=== PATIENT | female | born 1950 | race Caucasian/White ===

== ENCOUNTER 2017-07-28 23:12 | Observation (INO) ==
[2017-07-28] MEDS ORDERED: SALINE FLUSH 10ml SYRINGE IVF PRN (23:24)
[2017-07-28] MEDS ORDERED: MORPHINE SULFATE 4mg INJECTION IVP ONE (23:25)
[2017-07-28] MEDS ORDERED: KETOROLAC 30 MG/ML INJECTION IVP ONE (23:25)
[2017-07-28] MEDS ORDERED: ONDANSETRON 4 MG/2 ML INJECTION IVP ONE (23:25)
[2017-07-28] MEDS ORDERED: NS 1,000 ML IV ONE (23:26)
--- NOTE | 2017-07-28 23:31 | Emergency Department Report ---
Headache HPI - General Stated Complaint: severe salazar Time Seen by Provider: 07/28/17 23:14 Source: patient Mode of arrival: ambulatory Limitations: no limitations - History of Present Illness HPI Narrative: Patient has been having a severe global headache for the past 2 months. Patient was seen at the beginning of June here by Dr. Calabrese, diagnosed with probable recurrence of her chronic sinusitis, and started on Levaquin. Patient was then seen by Manuela Fields twice this month in the clinic, and thought to have continued sinusitis. Patient has been on 2 separate courses of antibiotics, and 4 days ago received an intramuscular injection of a steroid, none of which made her pain go away. Patient is scheduled for a CT of the head tomorrow, but the pain has become so severe tonight, without any relief from home Tylenol, the patient came to the ER. Patient has been offered and has not taken any other pain medications besides Tylenol over the course of last 2 months. Review of the patient's prescription record on [facility] acknowledges that she has not had any prescription pain medications. Patient has a long history of multiple recurrent sinusitis is in the past, has been seen by ENT in the past, it did not feel that those visits were worthwhile. When seeing Ms. Fields she stated that she would prefer not to see an ENT again in the future since she has had very little success in the past. Patient presents tonight specifically because her headache has become more severe, much more sharp in nature diffusely across the head, and she has had significant lightheadedness with presyncope at home secondary to the severity of pain. This seems to indicate a significant change from the patient's symptoms of the past 2 months. - Related Data Home Medications Medication Instructions Recorded Confirmed Bacillus/Protease/Amylas/Lipas 1 each PO DAILY 06/13/17 07/28/17 [Digest Adv Intensive Bowel Cap] Ibuprofen 200 mg PO Q6HR PRN 06/13/17 07/28/17 guaiFENesin [Mucinex] 1,200 mg PO Q12HR 06/13/17 07/28/[address] - ER 90 mg 90 mg PO DAILY each 07/13/17 07/28/17 capsule,delayed,extended release Previous Rx's Medication Instructions Recorded Fluticasone Nasal [place] [Flonase] 2 spray EA NOSTRIL DAILY 30 Days 07/11/16 #1 bottle Hyoscyamine [Levsin] 0.125 mg PO BID #14 tab 06/13/17 Allergies Allergy/AdvReac Type Severity Reaction Status Date / Time Penicillins Allergy Unknown Verified 07/28/17 23:24 Sulfa (Sulfonamide Allergy Unknown Verified 07/28/17 23:24 Antibiotics) Review of Systems All systems: reviewed and negative except as stated PFSH Patient Stated Medical History Hypertension Yes: DOES NOT TAKE MEDS Other GI Yes: IBS Clinic Medical History (Last Updated 07/13/17 @ 17:11 by DANIELLE Louis) Environmental allergies (Chronic Medical) IBS (irritable bowel syndrome) (Chronic Medical) Sinusitis/sinus problems Mild learning disability/memory impairment Surgical History: hysterectomy full Family History: Family History (Last Updated 07/13/17 @ 17:14 by DANIELLE Louis) Father Arthritis Colon cancer Mother Arthritis - Social History Smoking status: Never smoker Substance use type: does not use Alcohol intake frequency: does not drink Physical Exam - Limitations Limitations: no limitations - General General appearance: alert, anxious - Normal Exams: Head:: Normocephalic without trauma Eyes:: Pupils are PERRLA w/ EOMI, No scleral icterus, irritation, or foreign bodies noted Neck:: Full range of motion, without adenopathy, JVD, bruits or thyromegaly Chest/Respirations:: Clear all nix, with good airflow, and symmetry bilaterally Cardiovascular:: Regular rate and rhythm, without murmur or gallop, Pulses 2+ all extremities, capillary refill, <2 seconds all extremities Abdomen:: Bowel sounds positive, soft, non-tender, non-distended, no hepatosplenomegaly, masses or bruits noted Genitourinary:: Vulva without rashes, or lesions, no exudate or bleeding, noted externally Musculoskeletal:: No tenderness, or deformity noted, good range of motion, all extremities Integumentary:: No rashes, hives, or bruising noted, hair and nails, without abnormality Neurological:: Patient is alert, and oriented, cranial nerves, motor/sensory/ cerebellar, exams w/o gross deficits, to observation Psychiatric:: Patient exhibits, appropriate attention, emotion and affect - ENT ENT exam: Present: other (patient has diffuse mild tenderness over the entire cranium, as well as significant tenderness over the frontal and maxillary sinuses. Palpation reproduces the patient's headache significantly.) Course Vital Signs Temperature 98 F 07/28/17 23:12 Pulse Rate 77 07/28/17 23:12 Respiratory Rate 18 07/28/17 23:12 Blood Pressure 178/89 H 07/28/17 23:12 Pulse Oximetry 97 07/28/17 23:12 Temperature 98 F 07/28/17 23:12 Pulse Rate 71 07/29/17 01:20 Respiratory Rate 16 07/29/17 01:20 Blood Pressure 159/75 H 07/29/17 01:20 Pulse Oximetry 95 07/29/17 01:20 Headache - MDM Narrative Medical decision making narrative: Patient is given Toradol 30 mg IV, 1 L normal saline IV fluid bolus, Zofran and 4 mg morphine for discomfort and perceived possible dehydration with dry lips. CBC - n CMP - n As the patient's symptoms have significantly changed acutely, it is felt that the patient warrants emergent CT evaluation to rule out significant pathology in the sinuses and/or intracerebral bleed. 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 After initial medications patient states she has not had any relief whatsoever. Patient is given 8 milligrams dexamethasone an additional 4 mg morphine to try to help with what may be an atypical migraine syndrome. After second doses of medications patient still rates her pain 10 out of 10 with no relief whatsoever. Patient is given additional 100 g fentanyl, and will plan to admit the patient hospital for intractable headache Dr. Pranay Roque excepting for overnight hospitalist - Lab Data Result diagrams: 07/28/17 23:39 07/28/17 23:39 Lab Results 07/28/17 07/28/17 Range/Units 23:39 23:39 WBC 7.2 (4.5-11.0) T/MM3 RBC 4.73 (4.00-5.20) M/MM3 Hgb 13.8 (12-16) GM/DL Hct 41.4 (36-46) % MCV 87.5 (80-100) UM3 MCH 29.2 (26-34) UUG MCHC 33.3 (31-37) GM/DL RDW Std Deviation 40.4 (36.9-50.2) FL Plt Count 313 (130-400) T/MM3 MPV 8.9 L (9.4-12.4) UM3 Immature Gran % (Auto) 0.3 (0.0-0.5) % Neut % (Auto) 69.0 H (33-66) % Lymph % (Auto) 23.1 (23-45) % [place] % (Auto) 5.9 (0-9.0) % Eos % (Auto) 1.1 (0-4) % Baso % (Auto) 0.6 (0-2) % Neut # (Auto) 5.0 (1.8-7.7) T/MM3 Lymph # (Auto) 1.7 (1-4.8) T/MM3 [place] # (Auto) 0.4 (0-0.8) T/MM3 Eos # (Auto) 0.1 (0-0.5) T/MM3 Baso # (Auto) 0.0 (0-0.2) T/MM3 Abs Immat Gran (auto) 0.02 (0.00-0.03) T/MM3 Turbidity < 20 (0-20) Sodium 141 (134-144) MEQ/L Potassium 3.2 L (3.6-5) MEQ/L Chloride 103 (98-107) MEQ/L Carbon Dioxide 25 (22-30) MEQ/L Anion Gap 13 (5-15) MEQ/L BUN 8.0 (7-17) MG/DL Creatinine 0.6 L (0.7-1.2) MG/DL GFR Calculation 101 BUN/Creatinine Ratio 13 (6-26) RATIO Glucose 111 H (65-110) MG/DL Calculated Osmolality 270 (261-280) MOSM/KG Calcium 9.8 (8.4-10.2) MG/DL Total Bilirubin 0.90 (0.20-1.30) MG/DL Conjugated Bilirubin 0.00 (0.00-0.30) MG/DL Unconjugated Bilirubin 0.50 (0.00-1.1) MG/DL Icterus Index < 2 (0-7) AST 13 L (14-36) U/L ALT 24 (9-52) U/L Alkaline Phosphatase 78 (38-126) U/L Total Protein 7.5 (6.3-8.2) G/DL Albumin 4.2 (3.5-5.0) G/DL Globulin 3.3 (2.4-3.6) G/DL Albumin/Globulin Ratio 1.3 (1.1-2.2) RATIO Specimen Hemolysis < 15 (0-25) Disposition Clinical Impression: Intractable headache Qualifiers: Headache type: unspecified Headache chronicity pattern: acute headache Qualified Code(s): R51 - Headache Disposition: OBS [facility] Condition: Stable Prescriptions: No Action Fluticasone Nasal [place] [Flonase] 2 spray EA NOSTRIL DAILY 30 Days #1 bottle Ibuprofen 200 mg PO Q6HR PRN PRN Reason: Pain Bacillus/Protease/Amylas/Lipas [Digest Adv Intensive Bowel Cap] 1 each PO DAILY guaiFENesin [Mucinex] 1,200 mg PO Q12HR Hyoscyamine [Levsin] 0.125 mg PO BID #[address] - ER 90 mg capsule,delayed,extended release 90 mg PO DAILY each Referrals: Marcelino Butler MD [Physician] - - Seen By: physician
[2017-07-29] MEDS ORDERED: MORPHINE SULFATE 4mg INJECTION IVP ONE (00:41)
[2017-07-29] MEDS ORDERED: DEXAMETHASONE 4 MG/ML INJECTION IVP ONE (00:46)
[2017-07-29] MEDS ORDERED: FentaNYL 100 MCG/2 ML INJECTION IVP ONE (01:35)
[2017-07-29] MEDS ORDERED: MORPHINE SULFATE 4mg INJECTION IVP PRN (02:35)
[2017-07-29] MEDS ORDERED: HYDRALAZINE 20 MG/ML INJECTION IVP PRN (02:35)
[2017-07-29] MEDS ORDERED: DOCUSATE SODIUM 100 MG CAPSULE PO PRN (02:35)
[2017-07-29] MEDS ORDERED: ONDANSETRON 4 MG/2 ML INJECTION IVP PRN (02:35)
[2017-07-29] MEDS ORDERED: HYDROCODONE/APAP 5mg/325mg TABLET PO PRN (02:35)
[2017-07-29 02:39] VITALS: BMI 21.9
--- NOTE | 2017-07-29 02:55 | History & Physical Report ---
History of Present Illness Date: 07/29/17 Chief complaint: headache HPI: This is a 66 y/o female who is and has had persistent headaches for her adult life. The patient has more recently been evaluated by ENT and thought to perhaps have a sinusitis and has completed two rounds or oral antibitoics. Additionally the patient was seen by her PcP last tuesday and given a steroid injection as well. The patient is scheduled for a MRI of the brain tomorrow. The Headache has worsened to the point that the patient presented to the ED tonight and had a CT of the sinuses and head that were negative. Her vitals were normal except for HTN (not been on meds before). The patient was given an additional dose of steroids , fluids and IV ffentanyl with no real relief of her symptoms. AT this time she will be admitted and treated for her headache with imaging to be done in the am. Review of Systems Review of systems: headache is global, no nausea, no vomiting, no tinnitus, no difficulty swallowing, no focal motor weakness, c/o dizziness but is vague, almost dysequilibrium, no chest pain, no heart palpitaions, no cough, no congestion, no abdomen pain, 12 point ROS otherwise neg excpt for outlined above. Past Medical History Clinic Medical History (Last Updated 07/13/17 @ 17:11 by DANIELLE Louis) Environmental allergies (Chronic Medical) IBS (irritable bowel syndrome) (Chronic Medical) Surgical History: hysterectomy full Family History: Family History (Last Updated 07/13/17 @ 17:14 by DANIELLE Louis) Father Arthritis Colon cancer Mother Arthritis Family History Updates: as noted above, mother alive with dementia, father from bladder cancer - Social History Smoking status: Never smoker Medications Home Medications Medication Instructions Recorded Confirmed Type Bacillus/Protease/Amylas/Lipas 1 each PO DAILY 06/13/17 07/28/17 History [Digest Adv Intensive Bowel Cap] Ibuprofen 200 mg PO Q6HR PRN 06/13/17 07/28/17 History guaiFENesin [Mucinex] 1,200 mg PO Q12HR 06/13/17 07/28/[address] - ER 90 mg 90 mg PO DAILY each 07/13/17 07/28/17 History capsule,delayed,extended release Allergies Allergy/AdvReac Type Severity Reaction Status Date / Time Penicillins Allergy Unknown Verified 07/28/17 23:24 Sulfa (Sulfonamide Allergy Unknown Verified 07/28/17 23:24 Antibiotics) Exam Vital Signs: Temperature 96.7 F L 07/29/17 02:35 Pulse Rate 92 07/29/17 02:35 Respiratory Rate 20 07/29/17 02:35 Blood Pressure 185/93 H 07/29/17 02:35 Pulse Oximetry 94 07/29/17 02:35 Height/Weight/BMI: Height 1.6 m Weight 56 kg Body Mass Index 21.9 - Constitutional Present: mild distress, average body habitus, cooperative - Routine HEENT Exam Head: Present: normocephalic, atraumatic Eye: Present: EOMI, PERRL, conjunctivae pink ENT: Present: mucous membranes moist, mucous membranes dry - Routine Neck Exam Present: supple, full ROM - Routine Respiratory Exam Present: CTA bilaterally - Routine Cardiovascular Exam Present: RRR, no murmur - Routine Abdominal Exam Present: soft, normoactive bowel sounds - Routine Extremities Exam Present: no edema - Routine Back/Spine/Pelvis Exam Back/Spine: Present: full ROM - Routine Skin Exam Present: intact - Routine Neurological Exam Present: alert, oriented X3, CN II-XII intact, normal reflexes, moving all extremities, normal tone, vision grossly intact, hearing grossly intact, normal speech. Absent: motor deficit, altered mental status Results - Labs CBC & Chem 7: 07/28/17 23:39 07/28/17 23:39 Labs: reviewed, ct head and face reviewed and normal Assessment and Plan (1) Headache Current visit: No Status: Acute (2) Mild cognitive impairment Current visit: No Status: Chronic (3) Hypertension Current visit: Yes Status: Acute (4) Hypokalemia Current visit: Yes Status: Acute Assessment and Plan: 1. intractable headache acute POA: chronic as well. worse the last several days. The patient CT head neg in ED. CT sinus neg inED. has had 2 rounds ANB recent and steroids without effect. DDX is broad. the patient has had SILVA for her adult life but states not seen neurologist. SILVA are diffuse. not affected by light or noise or movement. no fever, chills or sweats. Will go ahead and get MR of brain in the am. fluids, iv pain meds. no indication for antibiotics at this time. It may be that the patient will need neuro consult priro to discharge 2. HTN acute POA: may reflect steroids recently used. will use hydralaizine iv prn. could be contributing to headaches 3. hypokalemia acute POA: replace and recheck 4. Hx of IBS: to be awawre of 5. DVT ppx; SCd, lovenox DVT Prophylaxis: SCD's, Lovenox Resuscitation Status: Full Code - Time spent with patient Time with patient PN: 30 minutes - Physician Narrative Physician: Zeke Delgado MD Narrative: Date: 07/29/17 Time: 249 Hospital Course Summary Disclaimer: The visit summary below is not to be considered part of the above Progress Note.
[2017-07-29] MEDS: NS with KCL 20 mEq 1,000 ML IV SCH ×2 (03:09→13:57)
[2017-07-29] MEDS ORDERED: SALINE FLUSH 10ml SYRINGE ONE (06:56)
[2017-07-29] MEDS ORDERED: GADOTERIDOL 279.3mg/ml - 15ml vial IVP ONE (06:56)
--- NOTE | 2017-07-29 08:08 | CT Scan Report ---
Indication: Global headache with history of sinusitis PROCEDURE: CT head/brain wo con: Encounter: Initial Comparison: None Technique: Axial CT images through the head were performed without contrast. Iterative Reconstruction dose reducing technique was utilized. FINDINGS: The ventricles are of normal size, shape, and contour for the patient's age. The brainstem, cerebellum, and cerebral hemispheres have a normal morphology and CT attenuation. There is no evidence of midline displacement. No hemorrhage, signs of acute territorial stroke, mass effect, mass lesions, or edema is evident. The visualized portions of the skull base, midface, and calvarium demonstrate no abnormality. The paranasal sinuses are well aerated and free of significant disease. The tympanic and mastoid cavities appear normal. IMPRESSION: No acute intracranial abnormality or hemorrhage. There is a preliminary report by [facility] [employer] [facility]. .
--- NOTE | 2017-07-29 08:10 | CT Scan Report ---
Indication: third Global headache with history of sinusitis chronically PROCEDURE: CT maxillofacial wo contrast: Encounter: Initial Comparison: None Technique: Axial noncontrast CT images through the mid face were performed with coronal and sagittal two-dimensional reformats. Automated Exposure Control and Iterative Reconstruction dose reducing techniques were utilized. Findings: The maxillary sinuses are clear. The frontal sinuses are clear. The ethmoid air cells and sphenoid sinuses are clear. Globes are intact. Lenses are located. The ostiomeatal units are patent. No significant nasal septal deviation or spurring. Left-sided henry bullosa. No fractures. Impression: Negative exam. There is a preliminary report by [facility]. .
--- NOTE | 2017-07-29 08:52 | Magnetic Resonance Report ---
Indication: intractable headache PROCEDURE: MR head/brain wo/w con: Encounter: Initial Comparisons: Head CT dated July 29, 2017 Technique: Multiplanar, multisequence, MR imaging of the head with and without contrast was acquired. Contrast: 11 mL of ProHance FINDINGS: The ventricles are of normal size, shape, and contour for the patient's age. There are small nonspecific punctate areas of T2-weighted and T2 FLAIR weighted signal abnormality in the deep frontoparietal white matter that most likely represent small vessel ischemic disease. This is of a degree that is slightly advanced for the patient's age. The brain stem, cerebellum, and cerebral hemispheres otherwise have a normal morphologic appearance as well as MR signal intensity on all pulse sequences. Following intravenous administration of contrast, no areas of abnormal enhancement are evident. There are no areas of restricted diffusion to suggest an acute infarct. There is no evidence of an intracranial mass lesion, intracranial hemorrhage, or hydrocephalus. The visualized portions of the orbits, calvarium, paranasal sinuses, and skull base demonstrate no significant abnormality. IMPRESSION: No acute intracranial abnormality. Slightly advanced nonspecific white matter disease for age could be due to microvascular ischemia, migraine headaches or a number of postinfectious, postinflammatory or posttraumatic etiologies. Demyelinating disease is within the differential as well. .
[2017-07-29] MEDS ORDERED: METOCLOPRAMIDE 10mg/2ml INJECTION IVP PRN (11:26)
[2017-07-29] MEDS ORDERED: KETOROLAC 30 MG/ML INJECTION IM PRN (11:26)
[2017-07-29] MEDS ORDERED: DiphenhydrAMINE 50 MG/ML INJECTION IVP PRN (11:26)
--- NOTE | 2017-07-29 12:12 | History & Physical Report ---
History of Present Illness Date: 07/29/17 HPI: Patient is a 66 year old female who was admitted last night due persistent headaches. Patient has NOT been seen by any specialists recently. She was seen by a "headache doctor" eight years ago and ENT several years ago. She thought that she had frequent sinus infections. A few weeks ago she was having abdominal pain and headache and was seen in ED. She was diagnosed with sinus infection and given a course of antibiotics with a refill. Her stomach felt better so she got the refill and continued antibiotics. This did not improve her headaches. She went to see her PCP who gave her oral steroids. She went to see her PCP again because of headaches and was given a steroid shot and MRI was ordered. Patient did not have her outpatient MRI as headache increased so much, she presented to ED last night. Majority of history is obtained from as patient is a relatively poor historian in terms of timeline. She has had headaches her entire adult life but used to be intermittent and mild. Lately symptoms have changed to include confusion and dizziness. She does not have a "typical" headache in that it is not always the same side of the head, some times it is one side sometimes all over. She has not lost bladder or bowel control, has had no change in vision. She does have difficulty standing or walking due to the dizziness and complains of ear pain. She was taking Tylenol and Ibuprofen without improvement, unable to quantify how many or how often. Her headache has been 10/10 and currently is 7/10. Review of Systems - Constitutional Constitutional: Present: as per HPI, headache(s), malaise, weakness. Absent: fever(s), night sweats, weight gain, weight loss - EENMT Eyes: Present: as per HPI, photophobia. Absent: blurry vision, change in vision , diplopia, loss of vision Ears: Present: ear pain. Absent: ear discharge, tinnitus Balance: Present: vertigo. Absent: falling to one side, ataxia Nose: Present: allergies Mouth/Throat: Absent: sore throat, changes in swallowing - Cardiovascular Cardiovascular: Absent: chest pain, palpitations, syncope - Respiratory Respiratory: Absent: cough, dyspnea on exertion, chest congestion - Gastrointestinal Gastrointestinal: Present: abdominal pain. Absent: change in bowel habits - Musculoskeletal Musculoskeletal: Present: muscle weakness. Absent: muscle cramps - Integumentary/Breasts Integumentary: Absent: erythema - Neurological Neurological: Present: headache(s), vertigo. Absent: abnormal speech, loss of vision, weakness Past Medical History Patient Stated Medical History Hypertension Yes: pt stated NO hx of HTN Other GI Yes: IBS Other Yes: infection Clinic Medical History (Last Updated 07/13/17 @ 17:11 by DANIELLE Louis) Environmental allergies (Chronic Medical) IBS (irritable bowel syndrome) (Chronic Medical) Surgical History: hysterectomy full Family History Updates: Family History (Last Updated 07/13/17 @ 17:14 by DANIELLE Louis). Father. Arthritis. Colon cancer. Mother. Arthritis - Social History Smoking status: Never smoker Current residence: Apartment/Private Home Medications Home Medications Medication Instructions Recorded Confirmed Type Bacillus/Protease/Amylas/Lipas 1 each PO DAILY 06/13/17 07/28/17 History [Digest Adv Intensive Bowel Cap] Ibuprofen 200 mg PO Q6HR PRN 06/13/17 07/28/17 History guaiFENesin [Mucinex] 1,200 mg PO Q12HR 06/13/17 07/28/[address] - ER 90 mg 90 mg PO DAILY each 07/13/17 07/28/17 History capsule,delayed,extended release Allergies Allergy/AdvReac Type Severity Reaction Status Date / Time Penicillins Allergy Unknown Verified 07/28/17 23:24 Sulfa (Sulfonamide Allergy Unknown Verified 07/28/17 23:24 Antibiotics) Exam Vital Signs: Temperature 97.8 F 07/29/17 08:00 Pulse Rate 72 07/29/17 08:18 Respiratory Rate 14 07/29/17 08:18 Blood Pressure 149/76 H 07/29/17 08:00 Pulse Oximetry 95 07/29/17 08:18 Height/Weight/BMI: Height 5 ft 3 in Weight 54.5 kg Body Mass Index 21.9 - Constitutional Present: no acute distress, thin - Routine HEENT Exam Head: Present: normocephalic, atraumatic Eye: Present: EOMI, conjunctivae pink ENT: Present: mucous membranes moist - Routine Neck Exam Present: supple. Absent: lymphadenopathy - Routine Respiratory Exam Present: CTA bilaterally. Absent: accessory muscle use - Routine Cardiovascular Exam Present: RRR, no murmur - Routine Abdominal Exam Present: soft, normoactive bowel sounds, non distended - Routine Extremities Exam Present: no edema. Absent: cyanosis, clubbing - Routine Skin Exam Present: intact, dry, warm - Routine Neurological Exam Present: alert, oriented X3, CN II-XII intact, moving all extremities, normal tone, normal speech. Absent: sensory deficit, motor deficit, altered mental status Results - Labs CBC & Chem 7: 07/28/17 23:39 07/29/17 04:01 Assessment and Plan (1) Mild cognitive impairment Current visit: No Status: Chronic (2) Headache Current visit: No Status: Acute (3) Hypertension Current visit: Yes Status: Acute (4) Hypokalemia Current visit: Yes Status: Acute Assessment and Plan: Assessment Intractable headache-CT negative, MRI with white matter changes, unclear etiology HTN-New? Hypokalemia-resolved IBS-chronic Plan Discontinue narcotics Treat with Toradol/Benadryl/Reglan Consult neurology, appreciate recs LP to rule out viral meningitis or EXPERIMENTAL PHYSICIST process Monitor BP-could be contributing to headaches although denies any HTN in the past, could be related to steroids and IVF Monitor electrolytes and replace as needed SCDs for DVT ppx due to LP today Continued admission pending further workup and resolution of pain - Physician Narrative Narrative: Date: 07/29/17 Time: 1203 Hospital Course Summary Disclaimer: The visit summary below is not to be considered part of the above Progress Note. Hospital Course: 07/29 Discontinue narcotics Treat with Toradol/Benadryl/Reglan Consult neurology, appreciate recs LP to rule out viral meningitis or EXPERIMENTAL PHYSICIST process Monitor BP-could be contributing to headaches although denies any HTN in the past, could be related to steroids and IVF Monitor electrolytes and replace as needed SCDs for DVT ppx due to LP today Continued admission pending further workup and resolution of pain
--- NOTE | 2017-07-29 14:32 | Fluoroscopy Report ---
INDICATION: headache/confusion Ordering physician:Amina Valderrama MD Procedure:FL lumbar puncture LUMBAR PUNCTURE: The procedure, including the benefits, risks, and alternatives were explained in detail to the patient. All of her questions were answered. They were given the option to decline the procedure. They stated that they understood and wished to proceed. Informed consent was obtained. A pre-procedural timeout was done to verify the correct patient and proper procedure. Using sterile technique, local Xylocaine anesthesia, and fluoroscopic guidance throughout, a 20 G spinal needle was advanced from a posterior approach into the subarachnoid space at the L2-3 level. A fluoroscopic image was then obtained and archived. Removal of the stylet showed clear colorless CSF. Opening pressure was 15 centimeters of water in the prone position. Then 12 cc of CSF was taken off and sent to the lab for the requested studies. The needle was removed. The procedure was completed without complication. Following this, the patient was transferred to her room on the medical floor and given discharge instructions. Impression: 1. Successful lumbar puncture performed with 12 cc of fluid removed and sent to lab. 2. Opening pressure of 15 cm water in the prone position. Fluoroscopy dose: 2.39 mGy (Cumulative air kerma) Saleem Bravo RPA/AC performed this under my personal supervision. .
[2017-07-29 15:21] VITALS: O2SAT 96
--- NOTE | 2017-07-29 15:28 | Consultation ---
DATE OF CONSULTATION 07/29/[address] Valderrama PATIENT'S CHIEF COMPLAINT Headache. HISTORY OF PRESENT ILLNESS Patient is a 66-year-old female with no significant past medical history. She has been complaining of headache for the past two months. This has been progressing in severity and it is graded as 10/10. This has affected her face mainly starting from the right ear into the left maxillary area. She denies having difficulty chewing or eating. She has had no facial weakness or numbness. The patient had a CT and MRI of the brain that showed no significant abnormalities. There was signs of small vessel disease on her MRI. Her maxillofacial CT head also was negative. The patient's lab were unremarkable with slightly elevated sodium level of 145. There were no signs of sepsis or infection on the lab. The patient has had good responses to steroid over the past two months for headache. She had oral steroids for a week and then she had several IV steroids in the emergency department. PHYSICAL EXAMINATION On physical examination, the patient was awake, alert, oriented x3. Pupils were round, reactive and equal. Extraocular muscles were intact. Visual field was full. Speech was fluent. The patient's attention and orientation were slightly slow but still within normal limits. Motor examination was 5/5 in all extremities. Sensory examination was symmetrical to light touch and pinprick. Her coordination for [id number] was normal. Deep tendon reflexes were 2/4. Plantar reflexes were in flexion bilaterally. The funduscopic examination was limited due to pupil size. ASSESSMENT Intractable facial headache progressing over the past two months. This can be a manifestation of sinus headache although the patient had normal CT of the maxillary and sinuses. This is not a manifestation of trigeminal neuralgia in particular and it does not fit the description of cluster headache. Other consideration include a viral disease including viral meningitis. PLAN 1. Obtain a spinal tap and workup for viral and bacterial meningitis. 2. Continue usage of steroids including dexamethasone or prednisone. For the prednisone, the patient can be on 20 mg p.o. q.d. for two weeks and then 10 mg p.o. q.d. for two weeks and stop it to help with the headache. 3. Obtain a sed rate to rule out temporal arteritis. 4. If the patient's headache continues to progress, she may benefit from trying carbamazepine 200 mg p.o. b.i.d. or similar medications. 5. Consider an eye evaluation if headache keep progressing. MTDD
[2017-07-29] MEDS: PredniSONE 20 MG TABLET PO SCH (17:03)
[2017-07-29] MEDS ORDERED: KETOROLAC 30 MG/ML INJECTION IM SCH (20:00)
[2017-07-29] MEDS: KETOROLAC 30 MG/ML INJECTION IVP SCH (20:10)
[2017-07-29] MEDS: DiphenhydrAMINE 50 MG/ML INJECTION IVP SCH (20:10)
[2017-07-29] MEDS: METOCLOPRAMIDE 10mg/2ml INJECTION IVP SCH (20:11)
[2017-07-30] MEDS: NS with KCL 20 mEq 1,000 ML IV SCH ×3 (00:19→10:00)
[2017-07-30] MEDS: KETOROLAC 30 MG/ML INJECTION IVP SCH ×2 (02:36→09:44)
[2017-07-30] MEDS: METOCLOPRAMIDE 10mg/2ml INJECTION IVP SCH ×3 (02:37→14:48)
[2017-07-30] MEDS: DiphenhydrAMINE 50 MG/ML INJECTION IVP SCH ×3 (02:38→14:42)
[2017-07-30 08:15] VITALS: BP 132/72; PULSE 66; RESP 16; TEMP 97.7
[2017-07-30] MEDS: PredniSONE 20 MG TABLET PO SCH (09:54)
[2017-07-30] MEDS ORDERED: ACETAMINOPHEN 325 MG TABLET PO PRN (10:32)
[2017-07-30] MEDS ORDERED: FLUTICASONE NASAL SPRAY 50mcg EA NOSTRIL SCH (10:45)
--- NOTE | 2017-07-30 11:14 | Progress Note ---
DATE 07/30/[address] Valderrama CHIEF COMPLAINT Headache. HISTORY OF PRESENT ILLNESS The patient has done better overnight. Her headache subsided to a less severe and more moderate grade earlier today. She had a spinal tap and the CSF fluid was unremarkable. Her sed rate level was 8 and normal with no evidence of temporal arteritis. She continues to take prednisone 20 mg p.o. q.a.m. for long -term headache treatment and especially sinus headache. She has had no fever and no other signs of sinus disease at the present time. Neurologically, she has been stable with no focal deficits and no abnormalities. ASSESSMENT Intractable tension headache most likely representing a facial or sinus headache. PLAN 1. Continue prednisone as scheduled for the next four weeks. 2. Consider adding carbamazepine if having worse headache. 3. Consider having an ENT evaluation if headache returns to be worse again or if having new signs of sinus disease. FRANSICO
[2017-07-30] MEDS ORDERED: INFLUENZA VAC QIV 2017-18 (Fluarix*)(>=3yo) 0.5ml IM ONE (14:41)
[2017-07-30] MEDS ORDERED: HYDROCODONE/APAP 5mg/325mg TABLET PO PRN (14:43)
[2017-07-30] MEDS ORDERED: DULOXETINE 30 MG CAPSULE PO SCH (14:45)
[2017-07-30] MEDS ORDERED: INFLUENZA VAC. INJ. ADMIN CHARGE INJ ONE (14:51)
--- NOTE | 2017-07-30 18:25 | Discharge Summary ---
Discharge Information Date of admission: 07/29/17 02:22 Anticipated date of discharge: 07/30/17 Attending Physician: Naomi David MD Primary care physician: Sandor Yanez MD Consults: Consulting Provider: Yahaira Joiner Reason For Exam: headache - Discharge Diagnosis (1) Headache Status: Acute Intractable headache Hypertension-POA, resolved Hypokalemia-resolved IBS-chronic Depression/anxiety - Procedures Procedures: Lumbar puncture under fluoroscopy on 07/29/17 revealing opening pressure of 15 cm H2O. 12 cc of clear/colorless fluid was removed for testing. - Laboratory Labs: 07/29/17 04:01 CBC on admission was unremarkable, potassium 3.2, liver enzymes within normal limits. CRP < 5, ESR 8 CSF: 0 RBC, 1 WBC, glucose 78, protein 30; cryptococcal antigen and PCR panel all negative; Gram stain-no organisms seen. - Microbiology 07/29/17 13:37 Csf, Lumbar Puncture CSF Gram Stain -no organisms seen 07/29/17 13:37 Csf, Lumbar Puncture CSF Culture - Preliminary No Growth After 1 Day - Radiology Radiology: CT of the head without contrast on 07/29/17: The ventricles are of normal size, shape, and contour for the patient's age. The brainstem, cerebellum, and cerebral hemispheres have a normal morphology and CT attenuation. There is no evidence of midline displacement. No hemorrhage, signs of acute territorial stroke, mass effect, mass lesions, or edema is evident. The visualized portions of the skull base, midface, and calvarium demonstrate no abnormality. The paranasal sinuses are well aerated and free of significant disease. The tympanic and mastoid cavities appear normal. IMPRESSION: No acute intracranial abnormality or hemorrhage. ----- Maxillofacial CT without contrast on 07/29/17: The maxillary sinuses are clear. The frontal sinuses are clear. The ethmoid air cells and sphenoid sinuses are clear. Globes are intact. Lenses are located. The ostiomeatal units are patent. No significant nasal septal deviation or spurring. Left-sided henry bullosa. No fractures. Impression: Negative exam. ----- MRI of the brain with/without contrast on 07/29/17: The ventricles are of normal size, shape, and contour for the patient's age. There are small nonspecific punctate areas of T2-weighted and T2 FLAIR weighted signal abnormality in the deep frontoparietal white matter that most likely represent small vessel ischemic disease. This is of a degree that is slightly advanced for the patient's age. The brain stem, cerebellum, and cerebral hemispheres otherwise have a normal morphologic appearance as well as MR signal intensity on all pulse sequences. Following intravenous administration of contrast, no areas of abnormal enhancement are evident. There are no areas of restricted diffusion to suggest an acute infarct. There is no evidence of an intracranial mass lesion, intracranial hemorrhage, or hydrocephalus. The visualized portions of the orbits, calvarium, paranasal sinuses, and skull base demonstrate no significant abnormality. IMPRESSION: No acute intracranial abnormality. Slightly advanced nonspecific white matter disease for age could be due to microvascular ischemia, migraine headaches or a number of postinfectious, postinflammatory or posttraumatic etiologies. Demyelinating disease is within the differential as well. History of Present Illness HPI: Patient is a 66 year old female who was admitted last night due persistent headaches. Patient has NOT been seen by any specialists recently. She was seen by a "headache doctor" eight years ago and ENT several years ago. She thought that she had frequent sinus infections. A few weeks ago she was having abdominal pain and headache and was seen in ED. She was diagnosed with sinus infection and given a course of antibiotics with a refill. Her stomach felt better so she got the refill and continued antibiotics. This did not improve her headaches. She went to see her PCP who gave her oral steroids. She went to see her PCP again because of headaches and was given a steroid shot and MRI was ordered. Patient did not have her outpatient MRI as headache increased so much, she presented to ED last night. Majority of history is obtained from as patient is a relatively poor historian in terms of timeline. She has had headaches her entire adult life but used to be intermittent and mild. Lately symptoms have changed to include confusion and dizziness. She does not have a "typical" headache in that it is not always the same side of the head, some times it is one side sometimes all over. She has not lost bladder or bowel control, has had no change in vision. She does have difficulty standing or walking due to the dizziness and complains of ear pain. She was taking Tylenol and Ibuprofen without improvement, unable to quantify how many or how often. Her headache has been 10/10 and currently is 7/10. Objective Vital signs: Temperature 97.7 F 07/30/17 08:00 Pulse Rate 66 07/30/17 08:00 Respiratory Rate 16 07/30/17 08:00 Blood Pressure 132/72 07/30/17 08:00 Pulse Oximetry 96 - RA 07/30/17 08:00 NAD, anxious, flat affect Tympanic membranes clear, external auditory canals clear bilaterally MAEW, sensation intact 4 extremities Respirations nonlabored, regular cardiac rhythm Height/Weight/BMI: Height 1.6 m Weight 55.9 kg Body Mass Index 21.9 Hospital Course This is a general summary of the patient's hospital course. For more details refer to the complete medical record. Hospital course: 07/29/17-admission Discontinue narcotics Treat with Toradol/Benadryl/Reglan Dr. Joiner recommended lumbar puncture, oral steroids with prednisone at 20 mg daily for 2 weeks then 10 mg daily for 2 weeks on trial basis. Additionally recommended sedimentation rate to rule out temporal arteritis. LP coordinated per radiology. Monitor BP-could be contributing to headaches although denies any HTN in the past, could be related to steroids and IVF Monitor electrolytes and replace as needed SCDs for DVT ppx due to LP today 07/30/17-discharge Mrs. Cody continues to describe headache which is global however pain has improved and is now graded 5/10 comparable to pain she's experienced for months. There is no nausea or vomiting and she tolerated a regular diet earlier today. Blood pressure normal today. Patient reports Benadryl helping control of headache more than anything else. Anxiety and probable mild chronic confusion evident in addition to depressed affect. She continues to describe sinus pressure and ear pressure although multiple studies and exam are unremarkable. asked if antidepressant might be of benefit as his sister is on Elavil. Elected to add Cymbalta 30 mg daily for pain control in conjunction with course of prednisone as previously recommended by Dr. Joiner. Patient was evaluated by physical therapy and ambulated in the halls without difficulty. Stable for discharge at this time with follow-up in the near future with primary provider and reassessment by Dr. Joiner in 2-4 weeks. Discharge Plan - Discharge Disposition Discharge Date: 07/30/17 Disposition: 01 Discharged Home, Self-Care *Condition: Stable Reason For Visit (Visit label in EMR): intractable headache - Discharge Medications *Discharge Medications: New Acetaminophen [Tylenol] 650 mg PO QID PRN tab PRN Reason: Discomfort Hydrocodone/APAP 5/325 [[place]adsworth 5/325] 1 tab PO TID PRN #20 tab PRN Reason: Pain PredniSONE [Deltasone 20 mg] 20 mg PO DAILY #21 tab Duloxetine [Cymbalta] 30 mg PO DAILY #30 cap Continue Fluticasone Nasal [place] [Flonase] 2 spray EA NOSTRIL DAILY 30 Days #1 bottle Ibuprofen 200 mg PO Q6HR PRN PRN Reason: Pain Bacillus/Protease/Amylas/Lipas [Digest Adv Intensive Bowel Cap] 1 each PO DAILY guaiFENesin [Mucinex] 1,200 mg PO Q12HR Hyoscyamine [Levsin] 0.125 mg PO BID #[address] - ER 90 mg capsule,delayed,extended release 90 mg PO DAILY each - Discharge Packet/Instructions *Diet: Regular diet *Activity: As tolerate *Pain Management/Treatment: Continue prednisone 20 mg daily for the next 2 weeks and then decrease dose to 10 mg (1/2 tablet) daily for 2 more weeks to help with management of headaches. Can additionally take Tylenol 650 mg 4 times a day if needed or ibuprofen 200 mg 4 times a day as needed. If pain is not controlled with above can take [place]adsworth 5 (hydrocodone/acetaminophen) 1 tablet up to 3 times a day for uncontrolled pain. I've also started you on Cymbalta 30 mg a day to help with anxiety and chronic pain. *Wound Care: Not applicable *Expected Signs/Symptoms: I suspect you will continue to have headaches intermittently but hopefully they'll be less intense and subside over time *Notify Physician if: Headaches worsen, you continue to have dizziness or passing out. *During Business Hours Contact: Makenna Fields at [facility] *After Business Hours Contact: Call [facility] at [phone] and ask that the on-call physician be paged *Pending Lab/Results: Follow up w/Provider (final culture results of spinal tap- negative at discharge) - Referrals/Follow Up *Referrals/Follow Up: Makenna Fields PA [Physician [facility]] - (3-5 days) Yahaira Joiner MD [Physician] - (2-4 weeks) - Patient Handouts Patient Handouts: Acute Headache (GEN) - Dismissal Complete Discharge Instructions are:: Complete Physician Narrative - Narrative Attestation Narrative: Date: 07/30/17 Time: 1821
[2017-07-30] MEDS ORDERED: HYOSCYAMINE 0.125 MG ORAL TABLET PO SCH (21:00)
[2017-07-30] MEDS ORDERED: GUAIFENESIN LA 600 MG TABLET PO SCH (21:00)
== END 2017-07-30 16:05 | disposition home or self-care (01) ==
LOC: ED 23:12 → MED 23:12 → SUATTDRO 07-29 02:22 → MED 07-29 02:28
PROVIDERS: ADMIT Emergency Medicine; ATTEND Internal Medicine

== ENCOUNTER 2017-08-22 15:58 | Observation (INO) ==
[2017-08-22] MEDS ORDERED: NS 1,000 ML IV ONE (16:41)
[2017-08-22] MEDS ORDERED: DiphenhydrAMINE 50 MG/ML INJECTION IVP ONE (16:41)
[2017-08-22] MEDS ORDERED: KETOROLAC 30 MG/ML INJECTION IVP ONE (16:41)
[2017-08-22] MEDS ORDERED: PROCHLORPERAZINE 10 MG/2 ML INJECTION IVP ONE (16:41)
[2017-08-22] MEDS: SALINE FLUSH 10ml SYRINGE IVF PRN ×2 (17:00→21:11)
--- NOTE | 2017-08-22 17:23 | Emergency Department Report ---
Headache HPI - General Chief Complaint: Medical Emergency Stated Complaint: bad headache Time Seen by Provider: 08/22/17 16:03 Source: patient, family, RN notes reviewed, old records reviewed, other ([facility] provider) Mode of arrival: wheelchair Limitations: no limitations - History of Present Illness HPI Narrative: 66yo woman presents to the ER for evaluation of a headache. Pt has had at least 6 weeks of an intractable headache. Sx are variable and wrap around/throughout her head. Pt has been previously evaluated by neuro and ENT. During her last admission, pt was improved by d/c. She presents today with pain that is 10/10. Although steroids had been helpful in the past, they are no longer helping. Pt admits that she has been contemplating suicide for the last 3 weeks due to the pain. She has endorsed at least two separate plans. Although pts SILVA sx have been present for > 30 years, pt notes that she had a headache exacerbation around the time of her father's (2 years ago). Recently, she and her have been traveling to [place] on the weekends to take care of her mother. MD Complaint: headache Onset (ago): week(s) (6+) Location: diffuse Severity: severe Severity scale (1-10): >10 Quality: sharp (Stabbing), similar to previous headaches, worst headache of life Relieving factors: nothing Associated symptoms: other (Dizziness/inability to stand; associated IBS sx) Treatments prior to arrival: acetaminophen, ibuprofen, prescription analgesic, migraine medication - Related Data Home Medications Medication Instructions Recorded Confirmed Bacillus/Protease/Amylas/Lipas 1 each PO DAILY 06/13/17 08/31/17 [Digest Adv Intensive Bowel Cap] Ibuprofen 200 mg PO Q6HR PRN 06/13/17 08/31/17 guaiFENesin [Mucinex] 1,200 mg PO Q12HR 06/13/17 08/31/[address] - ER 90 mg 90 mg PO DAILY each 07/13/17 08/31/17 capsule,delayed,extended release Cetirizine HCl [Zyrtec] 10 mg PO DAILY 08/22/17 08/31/17 predniSONE [Prednisone] 20 mg PO DAILY 08/22/17 08/31/17 Previous Rx's Medication Instructions Recorded Fluticasone Nasal [place] [Flonase] 2 spray EA NOSTRIL DAILY 30 Days 07/11/16 #1 bottle Hyoscyamine [Levsin] 0.125 mg PO BID #14 tab 06/13/17 Acetaminophen [Tylenol] 650 mg PO QID PRN tab 07/30/17 Inderal LA (propranolol ER) 60 mg 60 mg PO DAILY #30 cap 08/05/17 capsule,24 hr Cyclobenzaprine [Flexeril] 5 mg PO TID PRN #20 tab 08/23/17 Duloxetine HCl [Cymbalta] 1 cap PO DAILY #30 cap 08/23/17 Trazodone [Desyrel] 50 mg PO HS #30 tab 08/23/17 Valproic Acid (As Sodium Salt) 250 mg PO BID #60 solution 08/23/17 [Valproic Acid] Allergies Allergy/AdvReac Type Severity Reaction Status Date / Time Penicillins Allergy Unknown Verified 08/31/17 14:30 Sulfa (Sulfonamide Allergy Unknown Verified 08/31/17 14:30 Antibiotics) Review of Systems All systems: reviewed and negative except as stated Neurological: Reports: as per HPI, headache, weakness. Denies: numbness, paresthesias, confusion, abnormal gait, vertigo PFSH Patient Stated Medical History Hypertension Yes: pt stated NO hx of HTN Other GI Yes: IBS Other Yes: infection Depression Yes: suicidal ideation Clinic Medical History (Last Updated 08/22/17 @ 14:57 by Rosalie Ortiz LPN) Headache (Chronic Medical) Environmental allergies (Chronic Medical) IBS (irritable bowel syndrome) (Chronic Medical) Surgical History: hysterectomy full Family History: Family History (Last Reviewed 08/22/17 @ 14:57 by Rosalie Ortiz LPN) Father Arthritis Cancer of colon Mother Arthritis Family History Updates: Family History (Last Updated 07/13/17 @ 17:14 by DANIELLE Louis). Father. Arthritis. Colon cancer. Mother. Arthritis - Social History Smoking status: Never smoker Substance use type: does not use Alcohol intake frequency: does not drink Current occupational status: retired Current residence: Apartment/Private Home Physical Exam - Limitations Limitations: no limitations - General General appearance: alert, in distress - Normal Exams: Head:: Normocephalic without trauma Eyes:: Pupils are PERRLA w/ EOMI, No scleral icterus, irritation, or foreign bodies noted ENMT:: No facial trauma, nasal exudates, pharyngeal erythema, or exudates are noted Neck:: Full range of motion, without adenopathy Lymphatic:: No lymphadenopathy Musculoskeletal:: No tenderness, or deformity noted Integumentary:: No rashes, hives, or bruising noted Neurological:: Patient is alert, and oriented - Neurological Exam Neurological exam: Present: other (Dysarthria) - Expanded Neurological Exam Patient oriented to: Present: person, place, time Speech: Present: fluid speech (Dysarthric) Cranial nerves: Normal: EOM function (II, III, IV, ) Motor strength - LUE: 5/5 Motor strength - RUE: 5/5 Motor strength - LLE: 5/5 Motor strength - RLE: 5/5 DTR: 2+: patellar (L), patellar (R) - Psychiatric Psychiatric exam: Present: agitated, anxious, suicidal ideation Course - Consultations Consultation #1: Hospitalist: Recommends contacting neurologist. Time: 17:23 Consultation #2: Dr. Joiner: Pts sx do not fit well into any particular headache pattern. Pt has been thoroughly evaluated previously without finding a dx. Goal at this time would be to manage pts pain. Would recommend trying IV depakote - since this can help with both SILVA and mood. If this is successful, can consider treating with either gabapentin or carbamazepine. Time: 17:30 Vital Signs Temperature 98.2 F 08/22/17 16:11 Pulse Rate 80 08/22/17 16:11 Respiratory Rate 22 08/22/17 16:11 Blood Pressure 140/85 H 08/22/17 16:11 Pulse Oximetry 94 08/22/17 16:11 Temperature 97.5 F 08/23/17 16:09 Pulse Rate 86 08/23/17 16:09 Respiratory Rate 16 08/23/17 16:09 Blood Pressure 123/65 08/23/17 16:09 Pulse Oximetry 97 08/23/17 16:09 Headache - MDM Narrative Medical decision making narrative: Care of pt given to Dr. Calabrese @ 1800. - Differential Diagnosis Differential diagnosis: Likely: migraine, tension headache, subarachnoid hemorrhage, headache, sinusitis - Medical Records Attestation: I reviewed the patient's medical records. - Lab Data Attestation: I reviewed the patient's lab results. Result diagrams: 08/23/17 04:13 08/23/17 04:13 Lab Results 08/22/17 08/22/17 Range/Units 17:17 17:17 WBC 11.0 (4.5-11.0) T/MM3 RBC 4.36 (4.00-5.20) M/MM3 Hgb 13.2 (12-16) GM/DL Hct 37.6 (36-46) % MCV 86.2 (80-100) UM3 MCH 30.3 (26-34) UUG MCHC 35.1 (31-37) GM/DL RDW Std Deviation 40.3 (36.9-50.2) FL Plt Count 316 (130-400) T/MM3 MPV 8.6 L (9.4-12.4) UM3 Immature Gran % (Auto) 0.3 (0.0-0.5) % Neut % (Auto) 83.8 H (33-66) % Lymph % (Auto) 10.5 L (23-45) % Wake % (Auto) 5.1 (0-9.0) % Eos % (Auto) 0.2 (0-4) % Baso % (Auto) 0.1 (0-2) % Neut # (Auto) 9.3 H (1.8-7.7) T/MM3 Lymph # (Auto) 1.2 (1-4.8) T/MM3 Wake # (Auto) 0.6 (0-0.8) T/MM3 Eos # (Auto) 0.0 (0-0.5) T/MM3 Baso # (Auto) 0.0 (0-0.2) T/MM3 Abs Immat Gran (auto) 0.03 (0.00-0.03) T/MM3 Turbidity < 20 (0-20) Sodium 130 L (134-144) MEQ/L Potassium 3.4 L (3.6-5) MEQ/L Chloride 94 L (98-107) MEQ/L Carbon Dioxide 23 (22-30) MEQ/L Anion Gap 13 (5-15) MEQ/L BUN 9.0 (7-17) MG/DL Creatinine 0.5 L (0.7-1.2) mg/dL GFR Calculation 124 BUN/Creatinine Ratio 18 (6-26) RATIO Glucose 95 (65-110) MG/DL Calculated Osmolality 250 L (261-280) MOSM/KG Calcium 9.6 (8.4-10.2) MG/DL Icterus Index < 2 (0-7) Specimen Hemolysis < 15 (0-25) - Radiology Data Attestation: I reviewed the patient's radiology results. Disposition Clinical Impression: intractable headache Disposition: 02 To [facility] Condition: Stable - Seen By: physician
[2017-08-22] MEDS ORDERED: VALPROATE IV 500 MG in NS 100 ML IV ONE (17:38)
[2017-08-22] MEDS ORDERED: ONDANSETRON 4 MG/2 ML INJECTION IVP PRN (20:39)
[2017-08-22] MEDS ORDERED: HYDROCODONE/APAP 5mg/325mg TABLET PO PRN (20:39)
[2017-08-22] MEDS ORDERED: PROMETHAZINE 25 MG INJECTION IVP PRN (20:39)
[2017-08-22] MEDS ORDERED: MORPHINE SULFATE 4mg INJECTION IVP PRN (20:39)
[2017-08-22] MEDS ORDERED: KETOROLAC 30 MG/ML INJECTION IVP PRN (20:39)
[2017-08-22] MEDS ORDERED: ACETAMINOPHEN 325 MG TABLET PO PRN (20:39)
--- NOTE | 2017-08-22 20:55 | History & Physical Report ---
History of Present Illness Date: 08/23/17 Chief complaint: Headaches HPI: Ms Cody is a 66 year old female who has presented to the emergency department this evening with reports of headaches for the last 30 years, apparently worse the last 6 weeks. In the past she has had extensive evaluation through ENT and neurology. She was recently started on prednisone and propranolol within the last few weeks. By reports she has voiced active suicidal thoughts to the ER staff tonight due to pain and intolerance of the pain. Treatment modalities administered include IV toradol, benadryl, anti-emetics. Dr Joiner was contacted and he recommended IV valproic acid, which has helped somewhat with her pain. Please refer to charted lab data, radiographic imaging reports, medication administration reports, and ER provider documentation for further details. At the request of the ER provider, this patient will be placed in the hospital tonight for further evaluation and treatment of presenting issues including intractable headaches and suicidality. Neurology has agreed to see in the AM. Please note this patient encounter was performed via the use of telemedicine technology Review of Systems All systems PM: 10-point ROS was reviewed, no additional remarkable complaints except Past Medical History Patient Stated Medical History Hypertension Yes: pt stated NO hx of HTN Other GI Yes: IBS Other Yes: Yeast infection Depression Yes: suicidal ideation Clinic Medical History (Last Updated 08/22/17 @ 14:57 by Rosalie Ortiz LPN) Headache (Chronic Medical) Environmental allergies (Chronic Medical) IBS (irritable bowel syndrome) (Chronic Medical) Surgical History: hysterectomy full Family History: Family History (Last Reviewed 08/22/17 @ 14:57 by Rosalie Ortiz LPN) Father Arthritis Colon cancer Mother Arthritis Family History Updates: .. - Social History Smoking status: Never smoker Medications Home Medications Medication Instructions Recorded Confirmed Type Fluticasone Nasal [place] [Flonase] 2 spray EA NOSTRIL DAILY 30 Days 07/11/16 Rx #1 bottle Bacillus/Protease/Amylas/Lipas 1 each PO DAILY 06/13/17 08/22/17 History [Digest Adv Intensive Bowel Cap] Hyoscyamine [Levsin] 0.125 mg PO BID #14 tab 06/13/17 08/22/17 Rx Ibuprofen 200 mg PO Q6HR PRN 06/13/17 08/22/17 History guaiFENesin [Mucinex] 1,200 mg PO Q12HR 06/13/17 08/22/[address] - ER 90 mg 90 mg PO DAILY each 07/13/17 08/22/17 History capsule,delayed,extended release Acetaminophen [Tylenol] 650 mg PO QID PRN tab 07/30/17 08/22/17 Rx Inderal LA (propranolol ER) 60 mg 60 mg PO DAILY #30 cap 08/05/17 08/22/17 Rx capsule,24 hr Cetirizine HCl [Zyrtec] 10 mg PO DAILY 08/22/17 08/22/17 History Cymbalta (duloxetine) 30 mg 30 mg PO DAILY #30 cap 08/22/17 08/22/17 Rx capsule,delayed release predniSONE [Prednisone] 20 mg PO DAILY 08/22/17 08/22/17 History Allergies Allergy/AdvReac Type Severity Reaction Status Date / Time Penicillins Allergy Unknown Verified 08/22/17 14:53 Sulfa (Sulfonamide Allergy Unknown Verified 08/22/17 14:53 Antibiotics) Exam Vital Signs: Temperature 97.6 F 08/22/17 20:33 Pulse Rate 63 08/22/17 20:33 Respiratory Rate 18 08/22/17 20:33 Blood Pressure 138/76 08/22/17 20:33 Pulse Oximetry 96 08/22/17 20:33 Height/Weight/BMI: Height 1.63 m Weight 55 kg Body Mass Index 20.8 - Constitutional Present: no acute distress, well nourished, well developed - Routine HEENT Exam Head: Present: normocephalic, atraumatic - Routine Respiratory Exam Absent: dyspnea - Routine Cardiovascular Exam Present: RRR - Routine Abdominal Exam Present: soft - Routine Extremities Exam Absent: no edema - Routine Neurological Exam Present: alert, oriented X3. Absent: motor deficit - Routine Psychiatric Exam Present: suicidal ideation, cooperative. Absent: agitated Results - Labs CBC & Chem 7: 08/23/17 04:13 08/23/17 04:13 Assessment and Plan (1) Intractable headache Current visit: No Status: Acute Assessment and Plan: Assessment Intractable headaches of reported 30 years duration with apparent acute/ subacute exacerbation Suicidal thoughts Depression HTN Plan This patient will be placed under observation status to the medical floor. Continue supportive care with IV/PO analgesia options prn, and IV anti-emetics. Suicide precautions will be ordered. She will need psychiatry consultation in the AM. Also, a consult has been placed for neurology to eval in the AM. I have reviewed the provided list of home medications. Home medications which would be appropriate for administration at this time have been continued. Daytime rounding provider to please review and make further changes as necessary in the morning. Clinical progress will be monitored, and supportive care will be provided. Changes to the aforementioned plan will be made this evening as necessary. - Physician Narrative Physician: Naomi David MD Narrative: Date: 08/23/17 Time: 1520 Please see note dictated 08/23/17 for updates. Hospital Course Summary Disclaimer: The visit summary below is not to be considered part of the above Progress Note.
[2017-08-22] MEDS: NS 1,000 ML IV SCH (21:11)
[2017-08-22] MEDS: HYOSCYAMINE 0.125 MG ORAL TABLET PO SCH (21:16)
[2017-08-23] MEDS: NS 1,000 ML IV SCH ×2 (06:09→16:20)
--- NOTE | 2017-08-23 07:51 | CT Scan Report ---
Indication: Intractable headache PROCEDURE: CT head/brain wo con: Encounter: Initial Comparison: July 29, 2017 Technique: Axial CT images through the head were performed without contrast. Iterative Reconstruction dose reducing technique was utilized. FINDINGS: The ventricles are of normal size, shape, and contour for the patient's age. There are scattered areas of low attenuation in the white matter which most likely represent changes from chronic microvascular ischemia. The brainstem, cerebellum, and cerebral hemispheres otherwise have a normal morphology and CT attenuation. There is no evidence of midline displacement. No hemorrhage, signs of acute territorial stroke, mass effect, mass lesions, or edema is evident. The visualized portions of the skull base, midface, and calvarium demonstrate no abnormality. The paranasal sinuses are well aerated and free of significant disease. The tympanic and mastoid cavities appear normal. IMPRESSION: No acute intracranial abnormality or hemorrhage. There is a preliminary report by [employer] [facility]. .
[2017-08-23] MEDS: HYOSCYAMINE 0.125 MG ORAL TABLET PO SCH (08:07)
[2017-08-23] MEDS ORDERED: DULOXETINE 30 MG CAPSULE PO SCH (09:00)
[2017-08-23] MEDS ORDERED: PROPRANOLOL LA 60 MG CAPSULE PO SCH (09:00)
[2017-08-23] MEDS ORDERED: PredniSONE 10 MG TABLET PO SCH (09:00)
[2017-08-23] MEDS ORDERED: VALPROATE IV 500 MG in NS 100 ML IV ONE (10:34)
[2017-08-23] MEDS ORDERED: VALPROATE IVP ONE (11:00)
[2017-08-23] MEDS ORDERED: DULOXETINE 30 MG CAPSULE PO ONE (13:32)
--- NOTE | 2017-08-23 14:16 | Neuropsychiatric Consult ---
[facility] Date: 08/23/17 Requesting Physician: Naomi David Reason for Consultation: Depression Start Time: 11:20 Stop Time: 12:00 History of Present Illness: Patient is a 66-year-old female admitted to [facility] due to intractable pain from headaches. Since admission, patient made statements about wanting to and thus psychiatry was consulted for safety evaluation. Patient had reported a plan of CO poisoning to medical team. Patient was interviewed and was at bedside though she encouraged his participation in the interview and she spoke openly in front of him. She immediately says, "I'm not as depressed." She does admit to having thoughts of not wanting to live anymore when her pain gets so bad (such as upon admission) but states that she is not going to harm herself and her pain already feels better since being here in the hospital. She is open to psych medication changes and is hopeful they will help with her mood. She does endorse feeling depressed due to poor quality of life (she says she wasn't able to walk or hardly move because of severe headaches). She lists her grandchildren as protective factors. She denies HI, AVH. She denies any hx of suicide attempts. She denies any history of psych hospitalizations or psychiatric care. She denies any hx of symptoms consistent with bipolar disorder. She has taken Cymbalta for 2 weeks; discussed that we could go up on dose and dosage could be increased further by provider after discharge as well. She prefers to have med management by PCP rather than psychiatrist though this was encouraged. She also endorses poor sleep recently due to pain and thinks it may help her mood if she wer able to sleep; she is willing to take trial of trazodone. states that she does make such statements when she is pain but she has done so for many years and he does not feel like she is a danger to self. Even so, I recommended he lock all firearms from her access and supervise her for safety 27/12 until her pain and mood have improved. He agrees to this. He worries that depression and anxiety are making pain worse and encourages her to get help for these things. He states that if it does not improve, he will bring her back to hospital for stay at [facility]. [facility] Patient Stated Medical History Hypertension Yes: pt stated NO hx of HTN Other GI Yes: IBS Other Yes: Yeast infection Depression Yes: suicidal ideation Clinic Medical History (Last Updated 08/22/17 @ 14:57 by Rosalie Ortiz LPN) Headache (Chronic Medical) Environmental allergies (Chronic Medical) IBS (irritable bowel syndrome) (Chronic Medical) Surgical History: hysterectomy full Family History: Family History (Last Reviewed 08/22/17 @ 14:57 by Rosalie Ortiz LPN) Father Arthritis Colon cancer Mother Arthritis Family History Updates: .. - Social History Smoking status: Never smoker Substance use type: does not use Alcohol intake frequency: does not drink Current occupational status: retired Current residence: Apartment/Private Home Review of Systems - Psychiatric Psychiatric: Present: as per HPI, abnormal sleep pattern, anxiety, depression. Absent: hallucinations, homicidal ideation, paranoia, visual hallucinations Mental Status Exam Vitals: Last Vital Signs Temp 98.6 F 08/23/17 07:23 Pulse 85 08/23/17 10:48 Resp 14 08/23/17 07:23 BP 120/67 08/23/17 10:48 Pulse Ox 95 08/23/17 10:48 Height: 1.63 m Weight: 54.8 kg - Mental Status Exam Muscle Strength/Tone: Normal Dressing: Casual Grooming: Good Attitude: Cooperative Motor Activity: Normal Eye Contact: Good Speech: Normal Volume: Normal Rhythm: Appropriate Rhythm Sensory: Alert Orientation: Oriented X4 Mood: Depressed Affect: Sad Rate of Thoughts: Appropriate Rate Thought Organization: Organized Associations: Intact Abstract Reasoning: Intact, able to abstract Thought Content: Helplessness, Somatic Concerns Perception/Psychotic: Perception Normal Language: Naming Intact Fund of Knowledge: Appropriate Memory: Grossly Intact Suicidal Ideation: Denies Homicidal Ideation: Denies Insight: Fair Judgement: Fair Impulse Control: Fair - Laboratory Result Diagrams: 08/23/17 04:13 08/23/17 04:13 Laboratory Results - last 24 hr 08/23/17 08/23/17 04:13 04:13 WBC 7.4 RBC 4.02 Hgb 11.9 L Hct 35.9 L MCV 89.3 MCH 29.6 MCHC 33.1 RDW Std Deviation 43.3 Plt Count 265 MPV 8.1 L Immature Gran % (Auto) 0.3 Neut % (Auto) 79.8 H Lymph % (Auto) 13.5 L [place] % (Auto) 5.9 Eos % (Auto) 0.4 Baso % (Auto) 0.1 Neut # (Auto) 5.9 Lymph # (Auto) 1.0 [place] # (Auto) 0.4 Eos # (Auto) 0.0 Baso # (Auto) 0.0 Abs Immat Gran (auto) 0.02 Turbidity < 20 Sodium 138 D Potassium 3.7 Chloride 102 D Carbon Dioxide 26 Anion Gap 10 BUN 8.0 Creatinine 0.6 L GFR Calculation 101 BUN/Creatinine Ratio 13 Glucose 81 Calculated Osmolality 263 Calcium 9.0 Magnesium 2.1 Icterus Index < 2 Specimen Hemolysis < 15 Assessment and Plan (1) Major depressive disorder, severe Current visit: Yes Status: Acute (2) Anxiety disorder, unspecified Current visit: Yes Status: Acute Offered inpatient psychiatric stabilization and patient refused, though she is open to medication changes. also agrees that patient is not an imminent danger to self and that she should be allowed to return home with outpatient f/ u. Plan is to increase Cymbalta to 60mg PO daily and start trazodone 50mg PO q HS with repeat dose available PRN insomnia. Encouraged patient to seek outpatient counseling for depression and anxiety as well. agreed to supervise for safety after discharge. Crisis plan discussed with patient and as well. Will continue to follow as long as patient is in hospital; thank you for this consult.
[2017-08-23] MEDS ORDERED: CYCLOBENZAPRINE 5 MG TABLET PO SCH (15:00)
--- NOTE | 2017-08-23 15:48 | History & Physical Report ---
- History and Physical History and Physical: Dr. Vela's note reviewed. Mrs. Cody interviewed and examined. Her provided little history. CC: Headache HPI: Mrs. Cody is 66-year-old female with history of chronic headaches which have become more frequent and more intense over the past 2 months. She was hospitalized on July 29 for intractable headache with workup including negative CT head without contrast, negative maxillofacial CT, unremarkable MRI of the brain with and without contrast, and negative lumbar puncture. She was seen by Dr. Joiner and was treated with low-dose prednisone and Cymbalta. She reports that headaches have persisted in the intervening time varying from 5/10 on a good day to 10/10 on bad days. Pain is generalized although often greatest on the top of her head. She describes pain starting in her shoulders and neck and radiating to the top of her head. She denies visual symptoms, nausea, vomiting, fevers, chills, or focal weakness/sensory loss. Her reports that anxiety brings on her headaches and that headaches make her anxiety worse. Patient reports the pain is been so bad that she wants to give up and has had suicidal thoughts. She has considered going to the garage and turning the car on but reports she really wouldn't do it. Patient actually saw Dr. Green for an evaluation of headaches and [place] about 10 years ago and reports she was put on a "fibromyalgia" medication which didn't help. Patient had a follow-up appointment with her primary provider about 2 weeks ago and prednisone was increased to 50 mg daily and slowly taper down without any improvement. She's been using Tylenol for pain taking up to 6 tablets a day again offering no relief. Her cites increased stress in their lives for the past 2 years as they've been assisting in caring for the patient's mother who has Alzheimer' s disease. On presentation to the emergency room yesterday the patient again had a noncontrast head CT which was unremarkable; Dr. Joiner was contacted and the patient received IV Depacon with partial relief of headache. Headache is now rated 5/10 although overnight she told nurses she was headache free on a number of occasions. PH/SH/FH: agree with that recorded by Dr. Vela yesterday evening. She has no history of tobacco, alcohol, or illicit drug use. Patient's is her DPOA and she has a living will and is undecided about whether she would want acute resuscitative interventions based on her current quality of life. Full code is maintained while she and her sort through options. In addition to family history recorded previously patient's mother has Alzheimer's disease. ROS: 10 point review as per Dr. Vela with addition of variable bowel fct and cramping attributed to IBS, some shoulder pain/neck pain. EXAM: General-NAD, soft spoken, alert; 98.6 120/67 95% room air HEENT-PERRL, EOMI without nystagmus, no photophobia, conjunctiva clear, sclera anicteric, conjugate gaze, facial structures symmetric, oropharynx clear, neck supple and without adenopathy; tenderness to palpation across trapezius bilaterally Lungs-respirations nonlabored, good airflow, breath sounds clear Cardiac-regular rhythm, S1-S2 Abd-soft, nontender, without palpable mass, bowel sounds present Ext-without edema Skin-without generalized rash or wounds Neuro-cranial nerves 3-12 intact, motor tone/power within normal limits although deltoids are slightly weaker than distal power upper extremities; sensation intact to light touch 4 extremities Psych-anxious, flat affect DATA: White count 7.4, hemoglobin 11.9, basic metabolic panel unremarkable CT head without contrast reviewed by myself-no acute intracranial pathology A/P: Intractable headache Depression/anxiety Trapezius spasm Hypokalemia-POA, corrected Hyponatremia-POA, corrected IBS Normocytic anemia Dr. Joiner consulted regarding ongoing headache; additional valproic acid given this morning IVP. Anticipate continuing valproic acid at discharge and oral form. Patient appears comfortable and did not require pain medication at all overnight. Continue prednisone taper as previously outlined. History suggests some component of tension headache and exam compatible with trapezius spasm-Flexeril added 5 mg [address] Espinosa consulted regarding depression and suicidal thoughts/ideation although her indicates it's unlikely she would act on these thoughts. Inpatient psychiatric care offered to the patient but she declined. Cymbalta will be increased to 60 mg daily with addition of low-dose trazodone to assist with sleep per recommendations of Dr. Espinosa. Discussed with Dr. Espinosa , discussed with Dr. Rahman PT/OT consults requested due to patient reports of being bedridden for most of the past 3 weeks due to headaches. Therapy reports need for standby assistance but safe for discharge to the home environment. Anticipate discharge home later today. Status with Dr. Espinosa, discussed with Dr. Rahman.
[2017-08-23 16:10] VITALS: BP 123/65; PULSE 86; RESP 16; TEMP 97.5; O2SAT 97
--- NOTE | 2017-08-23 16:48 | Consultation ---
DATE OF CONSULTATION 08/23/[address] David PATIENT'S CHIEF COMPLAINT Headache. HISTORY OF PRESENT ILLNESS The patient is a 66-year-old female with history of headache and seasonal allergy, IBS and mood disorder. The patient was recently admitted to [facility] four weeks ago for similar type of headache. Her symptoms have been progressing for the past six months. The patient had an MRI of the brain, several CTs of the head and a spinal fluid test that showed no specific abnormalities for the headaches. Her headaches have affected her forehead mainly in the previous admission. Now they have moved to affect the entire head starting from the occiput to the top of the head to the forehead. Her headaches were graded as 15/10 in the ER. The patient has been very suicidal because of her headaches. She has been taking steroid titration after her last visit and she did not finish that. This has not helped her headache significantly. She has had no focal weakness or numbness, no vision problem and no eye pain. She has had no new confusion or loss of consciousness. Her blood pressure has been in the 150-160/100 due to headache. Her lab work was unremarkable overall. Her last CT of the head did not show any focal abnormalities and no acute changes to the brain. PHYSICAL EXAMINATION On physical examination the patient was awake, alert, oriented x3. Pupils were round, reactive and equal. Extraocular muscles were intact. Visual field was full. Funduscopic examination was unremarkable. Motor examination was 5/5. Sensory examination was symmetrical to light touch and temperature sensation. Deep tendon reflexes were 2/4. Plantar reflexes were in flexion bilaterally. Coordination for [id number] was unremarkable. ASSESSMENT Intractable migrainous headache associated with severe irritability and mood disorder. Her headache has been worsening with activity and upon standing in particular. The patient did improve on Depacon IV in the ER. She got another dosage earlier today and this has helped a little bit with her headache. She grades her headaches at 5/10 at the present time. PLAN 1. Continue IV Depakote on a daily basis until headache improves completely. 2. The patient may benefit from being on oral Depakote ER 500 mg p.o. q.h.s. for headache prevention and mood disorder. 3. Consider gabapentin 300-600 mg p.o. q.d. if Depakote is not helping with headaches. 4. Optimize treatment for anxiety and depression and consider a psychiatric consultation if having worse mood problem. 5. Consider a blood patch if her headaches seem to worsen upon standing with no improvement with treatment. FRANSICO
[2017-08-23 17:05] VITALS: BMI 20.7
--- NOTE | 2017-08-23 17:12 | Pharmacy Consult ---
Pharmacy Consult-Other Meds - Consult Information DECREASING PREDNISONE ORDER: Pt is finishing a decreasing dose regimen of: 50mg daily x 4 days, 40mg daily x 4 days, 30mg daily x 4 days, 20mg daily x 4 days, 10mg daily x 4 days. 08/23 is first day of 10mg dose. 08/26 is last dose of therapy.
[2017-08-23] MEDS ORDERED: TRAZODONE 50 MG TABLET PO SCH (21:00)
--- NOTE | 2017-08-23 21:18 | Discharge Summary ---
Discharge Summary- Blank Discharge Summary: Diagnoses: Intractable headache Depression/anxiety Trapezius spasm Hypokalemia-POA, corrected Hyponatremia-POA, corrected IBS Normocytic anemia Hospital course: Please referred to H&P dictated earlier today for details of hospital course. Dr. Joiner consulted regarding ongoing headache; additional valproic acid given this morning IVP. Anticipate continuing valproic acid at discharge and oral form. Patient appears comfortable and did not require pain medication at all overnight. Continue prednisone taper as previously outlined. History suggests some component of tension headache and exam compatible with trapezius spasm-Flexeril added 5 mg [address] Espinosa consulted regarding depression and suicidal thoughts/ideation although her indicates it's unlikely she would act on these thoughts. Inpatient psychiatric care offered to the patient but she declined. Cymbalta will be increased to 60 mg daily with addition of low-dose trazodone to assist with sleep per recommendations of Dr. Espinosa. PT/OT consults requested due to patient reports of being bedridden for most of the past 3 weeks due to headaches. Therapy reports need for standby assistance but safe for discharge to the home environment. Following completion of above referrals patient felt stable for discharge with continuation of all medication she was on previously and addition of: -Valproic acid 250 mg twice a day -Flexeril 5 mg 3 times a day when necessary for muscle spasm -Trazodone 50 mg daily at bedtime for sleep -Increased to Cymbalta 60 mg daily. Patient asked to follow up with her primary care provider in one week; outpatient psychiatric care strongly recommended and follow up with Dr. Joiner if headaches are ongoing.
[2017-08-24] MEDS ORDERED: PredniSONE 10 MG TABLET PO SCH (08:00)
[2017-08-24] MEDS ORDERED: DULOXETINE 30 MG CAPSULE PO SCH (09:00)
== END 2017-08-23 17:54 | disposition home or self-care (01) ==
LOC: ED 15:58 → MED 15:58
PROVIDERS: ADMIT Hospitalist; ATTEND Internal Medicine